=== PATIENT | male | born 1980 | race African-American/Black ===

== ENCOUNTER 2016-12-20 10:44 | Emergency (ER) | payer SELFPAY ==
[~2016-12-20] VITALS: Ht 182.9 cm; Wt 100.0 kg
[~2016-12-20 10:44] MED LIST: MOTRIN; NORCO
[2016-12-20] MEDS: SODIUM CHLORIDE 0.9% 1,000 ML IV ONE (12:09)
[2016-12-20] MEDS: KETOROLAC 30MG/ML VIAL IV ONE (12:09)
[2016-12-20] MEDS: ONDANSETRON HCL 4MG/2ML VIAL IV STA (12:09)
[2016-12-20 13:13] LABS: BASOPHILS % 0.3 % (0.0-2.0); EOSINOPHILS % 1.3 % (0.0-5.0); HEMATOCRIT. 45.7 % (42.0-52.0); HEMOGLOBIN. 14.7 g/dL (14.0-18.0); LYMPHOCYTES % 9.6 % (20.0-50.0); MEAN CORPUSCULAR HEMOGLOBIN 25.1 pg (28.0-32.0); MEAN CORPUSCULAR VOLUME 78.1 fL (80.0-94.0); MEAN PLATELET VOLUME 9.4 fl (7.4-10.4); NEUTROPHILS % 83.8 % (40.0-76.0); PLATELET 249 x1000/uL (130-400); RED BLOOD CELL COUNT 5.84 mill/uL (4.7-6.1)
[2016-12-20 13:20] LABS: CHLORIDE 107 mEq/L (98-107)
[2016-12-20] MEDS: MORPHINE SULFATE 4 MG/ML CPJ (NOT FOR IM USE) IV ONE (13:23)
[2016-12-20] MEDS: ONDANSETRON HCL 4MG/2ML VIAL IV ONE (13:24)
[2016-12-20 13:25] LABS: CARBON DIOXIDE 27 mEq/L (21-32)
[2016-12-20 13:26] LABS: PARTIAL THROMBOPLASTIN TIME 23.8 sec (23.4-31.0); PROTHROMBIN TIME 10.2 sec (9.4-11.6)
[2016-12-20 17:25] VITALS: BP 136/91
== END 2016-12-20 17:34 | disposition home or self-care (01) ==
LOC: ER 12:57
DX: N23 Unspecified renal colic (principal)
CPT/HCPCS: 36415; 74176; 80053; 83690; 85025; 85610; 85730; 96361; 96374; 96375; 96376; 99285; J1885; J2270; J2405; Z7610; J7030

== ENCOUNTER 2016-12-22 00:12 | Inpatient (IN) | payer SELFPAY ==
[~2016-12-22] VITALS: Ht 182.9 cm; Wt 99.8 kg
[2016-12-22] MEDS ORDERED: ONDANSETRON HCL 4MG/2ML VIAL IV STA (01:06)
[2016-12-22] MEDS ORDERED: MORPHINE SULFATE 4 MG/ML CPJ (NOT FOR IM USE) IV STA (01:06)
[2016-12-22] MEDS ORDERED: SODIUM CHLORIDE 0.9% 1,000 ML IV ONE (01:06)
[2016-12-22 01:39] LABS: BASOPHILS % 0.3 % (0.0-2.0); EOSINOPHILS % 1.2 % (0.0-5.0); HEMATOCRIT. 40.8 % (42.0-52.0); HEMOGLOBIN. 13.4 g/dL (14.0-18.0); MEAN CORPUSCULAR HEMOGLOBIN 25.2 pg (28.0-32.0); MEAN PLATELET VOLUME 9.6 fl (7.4-10.4); MONOCYTES % 8.5 % (2.0-8.0); PLATELET 254 x1000/uL (130-400); RED CELL DISTRIBUTION WIDTH 14.8 % (11.6-14.6)
[2016-12-22 01:40] LABS: CHLORIDE 104 mEq/L (98-107)
[2016-12-22 01:48] LABS: CARBON DIOXIDE 25 mEq/L (21-32)
[2016-12-22 02:08] LABS: CLARITY URINE CLEAR (CLEAR); COLOR URINE YELLOW (YELLOW); GLUCOSE URINE NEGATIVE (NEGATIVE); KETONES URINE 1+ (NEGATIVE); LEUKOCYTE ESTERASE URINE NEGATIVE (NEGATIVE); NITRITE URINE NEGATIVE (NEGATIVE); OCCULT BLOOD URINE 3+ (NEGATIVE); PH URINE 5.5 (4.5-8.0); PROTEIN URINE NEGATIVE (NEGATIVE); SPECIFIC GRAVITY URINE 1.032 (1.005-1.030)
[2016-12-22] MEDS ORDERED: KETOROLAC 30MG/ML VIAL IV ONE (03:15)
[2016-12-22] MEDS ORDERED: MORPHINE SULFATE 4 MG/ML CPJ (NOT FOR IM USE) IV ONE (03:15)
[2016-12-22] MEDS ORDERED: TAMSULOSIN HCL 0.4MG SR CAPSULE PO ONE (04:15)
[2016-12-22] MEDS ORDERED: CEFTRIAXONE 1 G PREMIX 50 ML IV ONE (06:15)
[2016-12-22 08:55] VITALS: BP 103/65
[2016-12-22 09:11] VITALS: BP 103/65
[2016-12-22] MEDS ORDERED: CEFTRIAXONE 1 G PREMIX 50 ML IV SCH (09:45)
[2016-12-22] MEDS ORDERED: HYDROCODONE/APAP 7.5/325MG 1 TAB TABLET PO PRN (09:45)
[2016-12-22] MEDS ORDERED: KETOROLAC 30MG/ML VIAL IV PRN (09:45)
[2016-12-22] MEDS ORDERED: ONDANSETRON HCL 4MG/2ML VIAL IV PRN (09:45)
[2016-12-22] MEDS ORDERED: CEFTRIAXONE XX SCH (10:00)
[2016-12-22] MEDS: TAMSULOSIN HCL 0.4MG SR CAPSULE PO SCH (10:20)
[2016-12-22] MEDS: SODIUM CHLORIDE 0.9% 1,000 ML IV SCH ×3 (10:22→23:42)
[2016-12-22 12:00] VITALS: BP 109/60
[2016-12-22 16:00] VITALS: BP 112/67
[2016-12-22 17:01] LABS: CREATINE KINASE 179 IU/L (39-308)
[2016-12-22 20:00] VITALS: BP 115/69
[2016-12-22] MEDS ORDERED: CEFTRIAXONE 2 G in DEXTROSE 5% WATER 50 ML IV SCH (23:00)
[2016-12-23] VITALS: BP 120/75
[2016-12-23 00:22] LABS: CREATINE KINASE 142 IU/L (39-308)
[2016-12-23 04:00] VITALS: BP 117/78
[2016-12-23] MEDS: SODIUM CHLORIDE 0.9% 1,000 ML IV SCH ×2 (05:38→13:48)
[2016-12-23 05:44] LABS: BASOPHILS % 0.5 % (0.0-2.0); EOSINOPHILS % 5.4 % (0.0-5.0); HEMATOCRIT. 39.7 % (42.0-52.0); HEMOGLOBIN. 12.8 g/dL (14.0-18.0); LYMPHOCYTES % 31.2 % (20.0-50.0); MEAN CORPUSCULAR HEMOGLOBIN 25.3 pg (28.0-32.0); MEAN CORPUSCULAR VOLUME 78.3 fL (80.0-94.0); MEAN PLATELET VOLUME 9.9 fl (7.4-10.4); MONOCYTES % 9.8 % (2.0-8.0); NEUTROPHILS % 53.1 % (40.0-76.0); PLATELET 230 x1000/uL (130-400); RED BLOOD CELL COUNT 5.07 mill/uL (4.7-6.1); RED CELL DISTRIBUTION WIDTH 14.6 % (11.6-14.6)
[2016-12-23 07:18] LABS: CARBON DIOXIDE 30 mEq/L (21-32); CHLORIDE 105 mEq/L (98-107); HDL CHOLESTEROL 44 mg/dL (40-59); LDL CHOLESTEROL 188 mg/dL (5-100)
[2016-12-23 08:00] VITALS: BP 120/72
[2016-12-23] MEDS: TAMSULOSIN HCL 0.4MG SR CAPSULE PO SCH (08:58)
[2016-12-23 12:00] VITALS: BP 132/86
[2016-12-23 16:00] VITALS: BP 131/89
[2016-12-23 16:44] VITALS: BP 131/89
== END 2016-12-23 17:10 | disposition home or self-care (01) | DRG 465 ==
LOC: ER 00:12 → 7WST 06:11 → ENRESERV 07:16
PROVIDERS: ADMIT Internal Medicine; ATTEND Internal Medicine
DX: N13.2 Hydronephrosis with renal and ureteral calculous obstruction (principal); K76.0 Fatty (change of) liver, not elsewhere classified; N39.0 Urinary tract infection, site not specified
CPT/HCPCS: 36415; 74176; 80053; 80061; 81001; 82550; 83690; 85025; 87086; 96361; 96365; 96375; 96376; 99285; J0696; J1885; J2270; J2405; J7030; J7060

== ENCOUNTER 2022-01-05 21:03 | Emergency (ER) | payer SELFPAY ==
[~2022-01-05] VITALS: Ht 188 cm; Wt 109.0 kg
[~2022-01-05 21:03] MED LIST changes: -MOTRIN
[2022-01-05] MEDS ORDERED: ASPIRIN 325MG EC TABLET PO ONE (22:15)
[2022-01-05 23:00] LABS: BASOPHILS % 0.5 % (0.0-2.0); HEMATOCRIT. 44.2 % (42.0-52.0); HEMOGLOBIN. 14.2 g/dL (14.0-18.0); LYMPHOCYTES % 24.6 % (20.0-50.0); MEAN CORPUSCULAR HEMOGLOBIN 25.1 pg (28.0-32.0); MEAN CORPUSCULAR VOLUME 77.7 fL (80.0-94.0); MEAN PLATELET VOLUME 9.5 fl (7.4-10.4); NEUTROPHILS % 65.9 % (40.0-76.0); PLATELET 309 x1000/uL (130-400); RED BLOOD CELL COUNT 5.68 mill/uL (4.7-6.1); RED CELL DISTRIBUTION WIDTH 14.6 % (11.6-14.6)
[2022-01-05 23:08] LABS: CHLORIDE 103 mEq/L (98-107)
[2022-01-06] MEDS: ASPIRIN 325MG EC TABLET PO NR ×2 (01:10→01:46)
[2022-01-06 01:45] VITALS: BP 125/75
== END 2022-01-06 01:47 | disposition home or self-care (01) ==
LOC: ER 21:03
DX: R07.89 Other chest pain (principal); R25.2 Cramp and spasm; F41.0 Panic disorder [episodic paroxysmal anxiety]
CPT/HCPCS: 36415; 71045; 80053; 84484; 85025; 93005; 99285